=== PATIENT | male | born 1990 | race Native Hawaiian/Other Pacific Islander ===

== ENCOUNTER 2016-06-30 19:03 | Emergency (ER) | payer OTHER ==
[~2016-06-30] VITALS: Ht 167.6 cm; Wt 81.6 kg
[2016-06-30] MEDS ORDERED: NAPR500T PO (20:06)
[2016-06-30] MEDS ORDERED: NORCO 5/325MG TABLET (BULK FOR ED) PO ONE (20:15)
[2016-06-30 20:23] VITALS: BP 144/77
--- NOTE | 2016-07-01 07:59 | REP ---
RIGHT KNEE, COMPLETE: 06/30/2016. Clinical history: Trauma. No prior study. Five views were provided. Proximal tibiofibular articulation was normal. There is no fracture of the tibia, fibula, femur or patella. I do not see a definite suprapatellar effusion. There is no patellar subluxation. Medial and lateral compartments show no joint space narrowing and there is no loose body or osteochondral defect. Impression: 1. Negative right knee series. Signed by Miguel Pierre MD 07/01/2016 10:36 A
== END 2016-06-30 20:40 | disposition home or self-care (01) ==
LOC: M ED 20:29
DX: S83.91XA Sprain of unspecified site of right knee, initial encounter (principal); W19.XXXA Unspecified fall, initial encounter; Y92.89 Other specified places as the place of occurrence of the external cause; Y93.B9 Activity, other involving muscle strengthening exercises; Y99.1 Military activity